=== PATIENT | female | born 1960 | race Caucasian/White ===

== ENCOUNTER 2020-08-08 06:22 | Outpatient (CLI) | payer MEDICARE ==
[2020-08-08 13:56] LABS: Hemoglobin 13.8 g/dL (12.0-16.0); Mean Corpuscular HGB CONC 30.9 G/DL (32.0-36.0); Mean Corpuscular Hemoglobin 31.3 PG (27.0-33.0); Mean Corpuscular Volume 101.1 fl (80.0-100.0); Mean Platelet Volume 10.2 fl (7.4-10.4); Platelet Count 392 10x3/uL (130-400); RBC Distribution Width 12.5 % (11.5-14.5); Red Blood Cell (RBC) Count 4.41 10x6/uL (3.90-5.20); White Blood Cell (WBC) Count 6.6 10x3/uL (4.5-11.0)
[2020-08-08 14:16] LABS: Anion Gap 13 mmol/L (10-20); BUN (Urea Nitrogen) 11 mg/dL (9.8-20.1); Calc. Creatinine Clearance 0 mL/min (70-130); Calcium 8.9 mg/dL (7.8-10.44); Carbon Dioxide 22 mmol/L (22-29); Chloride 111 mmol/L (98-107); Estimated GFR-MDRD 73; Potassium 4.1 mmol/L (3.5-5.1); Sodium 142 mmol/L (136-145)
[2020-08-08 14:57] LABS: Glucose 57 mg/dL (70-105)
[2020-08-08 22:57] LABS: SARS-CoV-2 MS2 Positive; SARS-CoV-2 N Gene Negative; SARS-CoV-2 S Gene Negative; SARS-CoV-2 by NAA Not Detected (NotDetected); SARS-CoV-2 orf1ab Negative
--- NOTE | 2020-08-13 06:53 | EKG ---
Test Reason : PREOP Blood Pressure : / mmHG Vent. Rate : 074 BPM Atrial Rate : 074 BPM P-R Int : 212 ms QRS Dur : 086 ms QT Int : 382 ms P-R-T Axes : 063 034 075 degrees QTc Int : 424 ms Sinus rhythm with 1st degree A-V block with occasional Premature ventricular complexes Septal infarct , age undetermined Abnormal ECG No previous ECGs available Confirmed by RICARDO SANABRIA MD ([id number]) on 08/13/2020 6:53:43 AM Referred By: GUILLERMO Confirmed By:RICARDO SANABRIA MD
== END 2020-08-08 06:23 | disposition home or self-care (01) ==
LOC: LABBT 06:22
PROVIDERS: ATTEND Neurological Surgery
DX: Z01.818 Encounter for other preprocedural examination (principal); M54.12 Radiculopathy, cervical region; Z20.828 Contact with and (suspected) exposure to other viral communicable diseases
CPT/HCPCS: 80048; 85027; 93005; U0003; 87635; 93010

== ENCOUNTER 2020-08-12 08:17 | Observation (INO) | payer MEDICARE ==
[2020-08-12] MEDS ORDERED: Levofloxacin 500 mg/D5W 100 ml Premix Bag ONE (10:05)
[2020-08-12] MEDS ORDERED: Midazolam HCl 2 mg/2 ml Vial ONE (10:14)
[2020-08-12] MEDS ORDERED: Fentanyl 250 MCG/5 ML VIAL ONE (11:12)
[2020-08-12] MEDS ORDERED: Fentanyl 100 MCG/2 ML VIAL ONE ×3 (13:01→14:06)
[2020-08-12] MEDS ORDERED: Albuterol Sulfate 2.5 mg/3 ml Neb NEB PRN (13:27)
[2020-08-12] MEDS ORDERED: Mag-Al 1200 mg/1200 mg/30 ML UDCUP PO PRN (13:30)
[2020-08-12] MEDS ORDERED: traMADol HCl 50 MG TAB PO PRN ×2 (13:30)
[2020-08-12] MEDS ORDERED: tiZANidine HCl 4 MG TAB PO PRN (13:30)
[2020-08-12] MEDS ORDERED: Ondansetron PF 4 MG/2 ML Vial IVP PRN (13:30)
[2020-08-12] MEDS ORDERED: Milk Of Magnesia 30 ML UDCUP PO PRN (13:30)
[2020-08-12] MEDS ORDERED: Promethazine HCl 25 MG/ML VIAL IM PRN (13:30)
[2020-08-12] MEDS ORDERED: Promethazine HCl 12.5 MG SUPP PR PRN (13:30)
[2020-08-12] MEDS ORDERED: diphenhydrAMINE 25 MG CAP PO PRN (13:30)
[2020-08-12] MEDS ORDERED: Promethazine 25 MG TAB PO PRN (13:30)
[2020-08-12] MEDS ORDERED: diphenhydrAMINE 50 MG/ML VIAL IVP PRN (13:30)
[2020-08-12] MEDS ORDERED: HYDROmorphone 0.5 MG/0.5 ML SYRINGE ONE ×4 (14:10→17:07)
[2020-08-12] MEDS ORDERED: Rocuronium Bromide 10 MG/ML (10ML VIAL) ONE (14:19)
[2020-08-12] MEDS ORDERED: Dexamethasone 20 MG/5 ML VIAL ONE (14:19)
[2020-08-12] MEDS ORDERED: Ondansetron PF 4 MG/2 ML Vial ONE (14:19)
[2020-08-12] MEDS ORDERED: PROPOFOL 200 MG/20 ML VIAL ONE (14:19)
[2020-08-12] MEDS ORDERED: Lidocaine 1% PF 5 ML VIAL ONE (14:19)
[2020-08-12] MEDS ORDERED: Glycopyrrolate 0.2 MG/ML 5 ML SYRINGE ONE (14:19)
[2020-08-12] MEDS: Clindamycin/D5W 900 MG in Premix Bag 1 BAG IVPB SCH ×2 (15:00→21:49)
[2020-08-12] MEDS ORDERED: Clindamycin/D5W 900 mg/50 ml Premix Bag ONE (15:02)
[2020-08-12] MEDS ORDERED: Morphine 4 MG/ML VIAL ONE (17:27)
[2020-08-12] MEDS ORDERED: oxyCODONE/Acetaminophen 5 mg/325 mg Tablet PO PRN (17:43)
--- NOTE | 2020-08-12 18:03 | OP ---
DATE OF PROCEDURE: 08/12/2020 NUCLEAR MEDICAL TECH: Ezio. PROCEDURES PERFORMED: Anterior cervical diskectomy at C4-C5 and C5-C6. Interbody arthrodesis, intervertebral biomechanical device, local morselized autograft, demineralized bone matrix, anterior titanium instrumentation, C4-C5 and C5-C6. DESCRIPTION OF PROCEDURE: The patient was brought to the operating room and intubated. She was positioned supine with head in modest extension on a gel-filled donut. An incision was made in the right precervical area and dissected medial to the sternocleidomastoid muscle. We identified the anterior cervical spine and the level was confirmed by x-ray. We debrided the anterior osteophytes, placed distraction across the disk space, and using operative microscope and microdissection techniques, completely decompressed the intervertebral disks from foramen to foramen at C4-C5 and C5-C6. The bony endplates were then decorticated for the purpose of arthrodesis and appropriate-sized intervertebral biomechanical PEEK device was brought into the field, filled with demineralized bone matrix and local morselized autograft, and tapped in place securely at C4-C5 and C5-C6. Next, an anterior plate was brought into the field and secured to C4, C5, and C6 using two 14-mm screws at each level. The plate was separate and discrete from the intervertebral devices and not integral to them. The wound was extensively irrigated. Immaculate hemostasis was secured and the wound was closed in anatomic layers. Job ID: [id number]
[2020-08-12] MEDS: Sodium Chloride 0.9% 1,000 ML IV SCH (18:43)
[2020-08-12] MEDS: Morphine 4 MG/ML VIAL SLOW IVP PRN (19:07)
[2020-08-12] MEDS: Mometasone 200 MCG/Formoterol 5 MCG 120 PUFF INHALER INH SCH (19:59)
[2020-08-12] MEDS: Bupropion 100 MG SR TAB PO SCH (20:48)
[2020-08-12] MEDS: Topiramate 25 MG TAB PO SCH (20:50)
[2020-08-12] MEDS: Gabapentin 400 MG CAP PO SCH (20:51)
[2020-08-12] MEDS: busPIRone HCl 10 MG TAB PO SCH (20:52)
[2020-08-12] MEDS: DULoxetine 60 MG CAP PO SCH (20:53)
[2020-08-12] MEDS ORDERED: traZODone HCl 50 MG TAB PO SCH (21:00)
[2020-08-12] MEDS ORDERED: Montelukast Sodium 10 mg Tablet PO SCH (21:00)
[2020-08-12] MEDS ORDERED: rOPINIRole HCl 1 MG TAB PO SCH (21:00)
[2020-08-12] MEDS: Morphine 2 MG/ML VIAL SLOW IVP PRN (22:16)
[2020-08-12 22:36] VITALS: BMI 29.5
[2020-08-13] MEDS: Morphine 4 MG/ML VIAL SLOW IVP PRN (01:40)
[2020-08-13] MEDS: Sodium Chloride 0.9% 1,000 ML IV SCH (02:03)
[2020-08-13] MEDS: Morphine 2 MG/ML VIAL SLOW IVP PRN (04:56)
[2020-08-13] MEDS: Clindamycin/D5W 900 MG in Premix Bag 1 BAG IVPB SCH ×2 (05:01→14:42)
[2020-08-13] MEDS ORDERED: Levothyroxine Sodium 50 MCG TAB PO SCH (06:00)
--- NOTE | 2020-08-13 06:33 | DIS ---
DATE OF ADMISSION: 08/12/2020 DATE OF DISCHARGE: 08/13/2020 PROCEDURE: C4-C6 anterior cervical discectomy and fusion. 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 She underwent C4-C6 ACDF on 08/12/2020. Following the surgery, she was transitioned to the Med/Surg floor, where her pain has been well controlled with p.o. medications, she is tolerating a regular diet, and she is voiding appropriately. She has been ambulating in the halls easily. She had a ADELA drain placed intraoperatively, which had minimal output over the first night, only 15 mL, and this was removed on postoperative day #1. We will plan to dismiss the patient to home. I have discussed home care precautions and will follow up with the patient in 2 weeks. Her pain management physician has already provided her postoperative pain medication oxycodone. Job ID: [id number]
[2020-08-13] MEDS: Mometasone 200 MCG/Formoterol 5 MCG 120 PUFF INHALER INH SCH (07:11)
[2020-08-13] MEDS: Gabapentin 400 MG CAP PO SCH (08:43)
[2020-08-13] MEDS: busPIRone HCl 10 MG TAB PO SCH (08:44)
[2020-08-13] MEDS: DULoxetine 60 MG CAP PO SCH (08:45)
[2020-08-13] MEDS: oxyCODONE/Acetaminophen 5 mg/325 mg Tablet PO PRN ×2 (08:49→14:01)
[2020-08-13] MEDS ORDERED: Ramipril 5 MG CAP PO SCH (09:00)
[2020-08-13] MEDS: Bupropion 100 MG SR TAB PO SCH ×2 (11:21→14:01)
[2020-08-13] MEDS: Topiramate 25 MG TAB PO SCH ×2 (11:22→12:59)
[2020-08-13 16:02] VITALS: BP 109/70; TEMP 97.9
[2020-08-13] MEDS ORDERED: FLU VACC QS2020-21(6MOS UP)/PF 60 MCG/0.5 ML SYRINGE IM ONE (21:00)
== END 2020-08-13 16:37 | disposition home or self-care (01) ==
LOC: SDC 08:17 → SURG A 13:05
PROVIDERS: ADMIT Neurological Surgery; ATTEND Neurological Surgery
PROC: 0RG20A0 Fusion of 2 or more Cervical Vertebral Joints with Interbody Fusion Device, Anterior Approach, Anterior Column, Open Approach (ICD-10-PCS; principal; 2020-08-12)
PROC: 0RG2070 Fusion of 2 or more Cervical Vertebral Joints with Autologous Tissue Substitute, Anterior Approach, Anterior Column, Open Approach (ICD-10-PCS; 2020-08-12)
PROC: 0RT30ZZ Resection of Cervical Vertebral Disc, Open Approach (ICD-10-PCS; 2020-08-12)
DX: M54.12 Radiculopathy, cervical region (principal); I10 Essential (primary) hypertension; J45.909 Unspecified asthma, uncomplicated; G47.30 Sleep apnea, unspecified; D64.9 Anemia, unspecified; E03.9 Hypothyroidism, unspecified; M19.90 Unspecified osteoarthritis, unspecified site; F32.9 Major depressive disorder, single episode, unspecified; Z79.899 Other long term (current) drug therapy; Z88.0 Allergy status to penicillin; Z88.2 Allergy status to sulfonamides; Z88.1 Allergy status to other antibiotic agents; Z88.8 Allergy status to other drugs, medicaments and biological substances; Z91.040 Latex allergy status; Z91.048 Other nonmedicinal substance allergy status
CPT/HCPCS: 20930; 20936; 22551; 22552; 22853 ×2; 76000; 94640 ×2; C1713 ×4; C1776; J2270 ×2; 96365; 96375; 96376; G0378; J0690; J1100; J1170; J1956; J2250; J2405; J2704; J3010; J3490

== ENCOUNTER 2020-12-13 10:45 | Outpatient (CLI) | payer MEDICARE | END 2020-12-13 10:46 | disposition home or self-care (01) | LOC: TBSIIMAG 10:45 | PROVIDERS: ATTEND Neurological Surgery | DX: M51.36 Other intervertebral disc degeneration, lumbar region (principal); M47.816 Spondylosis without myelopathy or radiculopathy, lumbar region; M47.814 Spondylosis without myelopathy or radiculopathy, thoracic region; M48.061 Spinal stenosis, lumbar region without neurogenic claudication | CPT/HCPCS: 72148 ==